=== PATIENT | female | born 1985 | race African-American/Black ===

== ENCOUNTER 2021-09-06 11:46 | Outpatient (CLI) | payer OTHER | END 2021-09-06 19:39 | disposition home or self-care (01) | LOC: RAD 11:46 | PROVIDERS: ATTEND Nurse Practitioner Family | DX: M25.552 Pain in left hip (principal) ==

== ENCOUNTER 2021-09-08 12:26 | Emergency (ER) | payer OTHER ==
[~2021-09-08] VITALS: Ht 152.4 cm; Wt 59.9 kg
[2021-09-08 12:26] VITALS: TEMP 97.2
[2021-09-08 13:35] VITALS: BP 126/84
== END 2021-09-08 13:38 | disposition home or self-care (01) ==
LOC: ED 12:26
DX: H11.31 Conjunctival hemorrhage, right eye (principal)
CPT/HCPCS: 99282

== ENCOUNTER 2022-03-16 19:34 | Emergency (ER) | payer OTHER ==
[~2022-03-16] VITALS: Ht 152.4 cm; Wt 71.2 kg
[2022-03-16] MEDS ORDERED: AMITRIPTYLINE H50 MG PO (20:07)
[2022-03-16] MEDS ORDERED: MOBIC15 MG PO (20:07)
[2022-03-16] MEDS ORDERED: HYDR25TA60 PO (20:08)
[2022-03-16 20:18] VITALS: BP 102/68; TEMP 97.9
== END 2022-03-16 20:18 | disposition home or self-care (01) ==
LOC: ED 19:34
DX: H60.8X1 Other otitis externa, right ear (principal)
CPT/HCPCS: 99281